=== PATIENT | female | born 1965 | race Two or more races ===

== ENCOUNTER 2020-12-18 08:05 | Day surgery (SDC) | payer OTHER ==
[~2020-12-18 08:05] MED LIST: FOLIC ACID0.4 MG PO; SULFAZINE EC500 MG PO; SYNTHROID75 MCG PO
[2020-12-18] MEDS ORDERED: PERCOCET 5-3251 EACH PO (12:12)
[2020-12-18] MEDS ORDERED: POLY119PG PO (12:15)
[2020-12-18] MEDS ORDERED: NEURONTIN300 MG PO (12:15)
[2020-12-18] MEDS ORDERED: DERMOPLAST PAIN78 GM TOP (12:17)
== END 2020-12-18 20:49 | disposition home or self-care (01) ==
LOC: CIR.AMB 08:05
PROVIDERS: ATTEND Surgery
DX: K64.8 Other hemorrhoids (principal); Z20.822 Contact with and (suspected) exposure to COVID-19